=== PATIENT | male | born 1940 | race Hispanic/Latino ===

== ENCOUNTER → 2018-03-31 | Outpatient (CLI) | payer OTHER, MEDICARE ==
[~2018-03-31] MED LIST: ASPI-555 PO; ATOR40TA71 PO; CARV25TA PO; LISI10TA7 PO; OMEP20CA10 PO; POTA10TA19 PO; TAMS0.4C32 PO; WARF-57 PO
== END | disposition home or self-care (01) ==
LOC: OIH 13:29
PROVIDERS: ATTEND Family Medicine
DX: M48.061 Spinal stenosis, lumbar region without neurogenic claudication (principal); M47.896 Other spondylosis, lumbar region
CPT/HCPCS: 72100

== ENCOUNTER 2018-04-02 12:36 | Emergency (ER) | payer OTHER, MEDICARE ==
[2018-04-02] MEDS ORDERED: KETOROLAC TROMETHAMINE 60 MG/2 ML VIAL ONE (13:23)
[2018-04-02] MEDS ORDERED: MORPHINE SULFATE 2 MG/ML 1ML SYG ONE (13:24)
== END 2018-04-02 13:52 | disposition home or self-care (01) ==
LOC: EDH 12:36
DX: M54.41 Lumbago with sciatica, right side (principal); E78.5 Hyperlipidemia, unspecified; I10 Essential (primary) hypertension; Z72.0 Tobacco use; Z88.1 Allergy status to other antibiotic agents
CPT/HCPCS: 96372 ×2; 99284; J1885

== ENCOUNTER 2018-04-04 10:57 | Observation (INO) | payer OTHER, MEDICARE ==
[~2018-04-04] VITALS: Ht 160 cm; Wt 76.2 kg
[2018-04-04] MEDS: METRONIDAZOLE 500MG/100ML BAG 100 ML IVPB SCH ×2 (03:08→15:00)
[2018-04-04 11:26] LABS: BASOPHILS % (AUTO) 0.2 % (0.0-5.0); EOSINOPHILS % (AUTO) 0.2 % (0.0-8.0); HEMATOCRIT 50.8 % (42-54); LYMPHOCYTES % (AUTO) 7.4 % (21.0-51.0); MEAN CORPUSCULAR HEMOGLOBIN 28.2 pg (27.0-33.0); MEAN CORPUSCULAR HGB CONC 32.3 g/dL (32.0-36.0); MEAN CORPUSCULAR VOLUME 87.3 fL (79-99); NEUTROPHILS % (AUTO) 85.2 % (40.0-77.0); NUCLEATED RED BLOOD CELLS 0.1 % (0.0-0.19); PLATELET COUNT (AUTO) 126 K/uL (130-400); RED BLOOD CELL COUNT(AUTO) 5.81 MIL/uL (4.50-6.20); RED CELL DISTRIBUTION WIDTH 13.8 % (11.0-15.5); WHITE BLOOD COUNT (AUTO) 2.8 K/uL (4.8-10.8)
[2018-04-04 11:37] LABS: CREATININE 1.2 mg/dL (0.5-1.5)
[2018-04-04 11:47] LABS: ALBUMIN 3.3 g/dL (3.5-5.0); BILIRUBIN,TOTAL 0.7 mg/dL (0.2-1.0); TOTAL PROTEIN, SERUM 6.5 g/dL (6.0-8.3)
[2018-04-04 12:00] LABS: PARTIAL THROMBOPLASTIN TIME 62.7 SEC (26.3-35.5)
[2018-04-04 12:05] LABS: BAND NEUTROPHILS % (MANUAL) 13 % (0-2); LYMPHOCYTES % (MANUAL) 12 % (22-44); MONOCYTES % (MANUAL) 10 % (2-9); REACTIVE LYMPHOCYTES 1 % (0-0); SEGMENTED NEUTROPHILS % 64 % (40-70)
[2018-04-04 12:07] LABS: MAN.DIFF COMMENT-IMPRESSION MANUAL DIFFERENTIAL
[2018-04-04 12:14] LABS: PROTHROMBIN TIME > 63.0 SEC (9.6-11.6)
[2018-04-04 12:15] LABS: INR > 7.00 (0.85-1.15)
[2018-04-04] MEDS ORDERED: PHYTONADIONE 10 MG/1 ML AMP ONE (14:05)
[2018-04-04] MEDS: NS-20 MEQ KCL 1000ML 1,000 ML IV SCH (14:45)
[2018-04-04] MEDS: PANTOPRAZOLE 40 MG/VIAL IVP SCH (14:45)
[2018-04-04] MEDS ORDERED: NS-20 MEQ KCL 1000ML 1,000 ML IV ONE (14:59)
[2018-04-04] MEDS ORDERED: METRONIDAZOLE 500MG/100ML BAG 100 ML ONE ×2 (14:59→23:02)
[2018-04-04] MEDS ORDERED: ACETAMINOPHEN 325 MG TAB PO PRN ×2 (15:00)
[2018-04-04] MEDS ORDERED: GUAIFENESIN-DM 200/20 MG 10 ML PO PRN (15:00)
[2018-04-04] MEDS ORDERED: POTASSIUM CHLORIDE 10% ELIXIR 20 MEQ/15 ML UDCUP PO PRN (15:00)
[2018-04-04] MEDS ORDERED: ZOLPIDEM TARTRATE 5 MG TAB PO PRN (15:00)
[2018-04-04] MEDS ORDERED: POTASSIUM CHLORIDE 20 MEQ ERTAB PO PRN (15:00)
[2018-04-04] MEDS ORDERED: LACTULOSE 20 GM/30 ML UDCUP PO PRN (15:00)
[2018-04-04] MEDS ORDERED: POTASSIUM CHLORIDE 20MEQ/100ML 100 ML IV PRN (15:00)
[2018-04-04] MEDS ORDERED: NITROGLYCERIN 0.4 MG SL TAB SL PRN (15:00)
[2018-04-04] MEDS ORDERED: GLUCAGON 1MG KIT 1 MG ML IM PRN (15:00)
[2018-04-04] MEDS ORDERED: DIPHENHYDRAMINE HCL 25 MG CAPSULE PO PRN (15:00)
[2018-04-04] MEDS ORDERED: DiphenhydrAMINE HCL 50 MG/ML VIAL IVP PRN (15:00)
[2018-04-04] MEDS ORDERED: CLONIDINE HCL 0.1 MG TABLET PO PRN (15:00)
[2018-04-04] MEDS ORDERED: ONDANSETRON HCL 4 MG/2 ML VIAL IVP PRN (15:00)
[2018-04-04] MEDS ORDERED: LIDOCAINE HCL-MPF 1% 2ML VIAL IJ PRN (15:00)
[2018-04-04] MEDS ORDERED: MAG HYDROX/AL HYDROX/SIMETH ES 30 ML SUSP UDCUP PO PRN (15:00)
[2018-04-04] MEDS ORDERED: DEXTROSE 50%-WATER 50 ML DISP.SYRIN IV PRN (15:00)
[2018-04-04 15:24] LABS: HEMATOCRIT 49.4 % (42-54)
[2018-04-04 15:36] LABS: APPEARANCE,URINE Clear (CLEAR); BILIRUBIN,URINE Small (NEGATIVE); COLOR,URINE Dark Yellow (YELLOW); GLUCOSE, URINE (UA) Negative (NEGATIVE); KETONES,URINE Trace mg/dL (NEGATIVE); LEUKOCYTE ESTERASE ,URINE Trace (NEGATIVE); NITRATE,URINE Negative (NEGATIVE); OCCULT BLOOD,URINE Negative (NEGATIVE); PH,URINE 5.5 (5.0-8.0); PROTEIN,URINE POS 1+ (NEGATIVE)
[2018-04-04 15:44] LABS: BACTERIA,URINE Rare /HPF (None Seen); RBC,URINE None Seen /HPF (0-1); WBC,URINE 0-1 /HPF (0-1)
[2018-04-04 15:45] LABS: HYALINE CASTS, URINE 0-1 /LPF (0-1 /LPF); MUCUS,URINE Few LPF (None Seen); SQUAMOUS EPITHELIAL CELL,UR None Seen /HPF (0-2)
[2018-04-04] MEDS: INSULIN R PO SSI SQ SCH ×2 (16:30→21:00)
[2018-04-04 19:09] LABS: HEMATOCRIT 48.2 % (42-54)
[2018-04-04] MEDS ORDERED: ACETAMINOPHEN 325 MG TAB ONE (20:43)
[2018-04-05 00:36] VITALS: BP 148/88
[2018-04-05] MEDS ORDERED: WARF-57 PO (02:00)
[2018-04-05] MEDS ORDERED: TAMS0.4C32 PO (02:00)
[2018-04-05] MEDS ORDERED: ASPI-555 PO (02:00)
[2018-04-05] MEDS ORDERED: LISI10TA7 PO (02:00)
[2018-04-05] MEDS ORDERED: CARV25TA PO (02:00)
[2018-04-05] MEDS ORDERED: ATOR40TA71 PO (02:00)
[2018-04-05] MEDS ORDERED: OMEP20CA10 PO (02:00)
[2018-04-05] MEDS ORDERED: POTA10TA19 PO (02:00)
[2018-04-05 03:00] VITALS: BP 112/68
[2018-04-05] MEDS: NS-20 MEQ KCL 1000ML 1,000 ML IV SCH ×2 (03:15→15:33)
[2018-04-05 06:00] LABS: BASOPHILS % (AUTO) 0.3 % (0.0-5.0); EOSINOPHILS % (AUTO) 0.1 % (0.0-8.0); HEMATOCRIT 46.3 % (42-54); LYMPHOCYTES % (AUTO) 11.7 % (21.0-51.0); MEAN CORPUSCULAR HEMOGLOBIN 29.1 pg (27.0-33.0); MEAN CORPUSCULAR HGB CONC 33.7 g/dL (32.0-36.0); MEAN CORPUSCULAR VOLUME 86.3 fL (79-99); MONOCYTES % (AUTO) 6.6 % (3.0-13.0); NEUTROPHILS % (AUTO) 81.3 % (40.0-77.0); NUCLEATED RED BLOOD CELLS 0.1 % (0.0-0.19); PLATELET COUNT (AUTO) 128 K/uL (130-400); RED BLOOD CELL COUNT(AUTO) 5.36 MIL/uL (4.50-6.20); RED CELL DISTRIBUTION WIDTH 14.1 % (11.0-15.5); WHITE BLOOD COUNT (AUTO) 4.7 K/uL (4.8-10.8)
[2018-04-05 06:15] LABS: ALBUMIN 2.4 g/dL (3.5-5.0); BILIRUBIN,TOTAL 0.6 mg/dL (0.2-1.0); POTASSIUM 3.7 mmol/L (3.5-5.1); TOTAL PROTEIN, SERUM 5.3 g/dL (6.0-8.3)
[2018-04-05] MEDS: METRONIDAZOLE 500MG/100ML BAG 100 ML IVPB SCH ×3 (06:45→22:57)
[2018-04-05] MEDS: INSULIN R PO SSI SQ SCH ×4 (06:46→21:00)
[2018-04-05 07:00] VITALS: BP 103/54
[2018-04-05] MEDS: PANTOPRAZOLE 40 MG/VIAL IVP SCH (09:12)
[2018-04-05 10:09] LABS: HEMATOCRIT 47.9 % (42-54)
[2018-04-05] MEDS ORDERED: MORPHINE SULFATE 2 MG/ML 1ML SYG IV PRN (10:30)
[2018-04-05 11:00] VITALS: BP 143/67
[2018-04-05] MEDS: METHYLPREDNISOLONE SOD SUCC 125MG/2ML VIAL IVP SCH ×3 (11:57→22:57)
[2018-04-05 14:32] LABS: HEMATOCRIT 47.9 % (42-54)
[2018-04-05 16:00] VITALS: BP 124/77
[2018-04-05 20:00] VITALS: BP 124/68
[2018-04-06] VITALS: BP 136/75
[2018-04-06 04:00] VITALS: BP 126/92
[2018-04-06] MEDS: NS-20 MEQ KCL 1000ML 1,000 ML IV SCH (04:35)
[2018-04-06] MEDS: METHYLPREDNISOLONE SOD SUCC 125MG/2ML VIAL IVP SCH ×2 (04:37→10:41)
[2018-04-06 05:16] LABS: BASOPHILS % (AUTO) 0.1 % (0.0-5.0); HEMATOCRIT 47.9 % (42-54); MEAN CORPUSCULAR HEMOGLOBIN 28.2 pg (27.0-33.0); MEAN CORPUSCULAR HGB CONC 32.5 g/dL (32.0-36.0); MEAN CORPUSCULAR VOLUME 86.7 fL (79-99); MONOCYTES % (AUTO) 1.8 % (3.0-13.0); NEUTROPHILS % (AUTO) 89.1 % (40.0-77.0); PLATELET COUNT (AUTO) 121 K/uL (130-400); RED BLOOD CELL COUNT(AUTO) 5.53 MIL/uL (4.50-6.20); RED CELL DISTRIBUTION WIDTH 14.2 % (11.0-15.5); WHITE BLOOD COUNT (AUTO) 8.7 K/uL (4.8-10.8)
[2018-04-06 05:25] LABS: INR 1.53 (0.85-1.15); PROTHROMBIN TIME 15.9 SEC (9.6-11.6)
[2018-04-06 05:30] LABS: ALBUMIN 2.5 g/dL (3.5-5.0); BILIRUBIN,TOTAL 0.6 mg/dL (0.2-1.0); POTASSIUM 3.7 mmol/L (3.5-5.1); TOTAL PROTEIN, SERUM 5.7 g/dL (6.0-8.3)
[2018-04-06] MEDS: METRONIDAZOLE 500MG/100ML BAG 100 ML IVPB SCH (06:12)
[2018-04-06] MEDS: INSULIN R PO SSI SQ SCH ×2 (06:12→12:42)
[2018-04-06 07:00] VITALS: BP 143/77
[2018-04-06] MEDS: PANTOPRAZOLE 40 MG/VIAL IVP SCH (10:21)
[2018-04-06 11:00] VITALS: BP 150/74
[2018-04-06] MEDS ORDERED: CARVEDILOL 25 MG TABLET PO SCH (17:00)
[2018-04-06] MEDS ORDERED: ATORVASTATIN CALCIUM 40 MG TABLET PO SCH (17:00)
[2018-04-06] MEDS ORDERED: POTASSIUM CITRATE 20 MEQ PO SCH (21:00)
[2018-04-07] MEDS ORDERED: LISINOPRIL 10 MG TABLET PO SCH (09:00)
[2018-04-07] MEDS ORDERED: ASPIRIN 81MG TAB.CHEW PO SCH (09:00)
[2018-04-07] MEDS ORDERED: TAMSULOSIN HCL 0.4 MG CAP.ER.24H PO SCH (09:00)
[2018-04-07] MEDS ORDERED: PANTOPRAZOLE SODIUM 40 MG TABLET.DR PO SCH (09:00)
== END 2018-04-06 17:15 | disposition home or self-care (01) ==
LOC: EDH 10:57 → EDHIP 14:20 → 3BH 23:58
PROVIDERS: ADMIT Family Medicine; ATTEND Family Medicine
DX: A04.72 Enterocolitis due to Clostridium difficile, not specified as recurrent (principal); E78.5 Hyperlipidemia, unspecified; I10 Essential (primary) hypertension; M54.9 Dorsalgia, unspecified; Z79.01 Long term (current) use of anticoagulants
CPT/HCPCS: 36415 ×3; 72131; 80053 ×3; 81001; 82270; 82948 ×5; 83690; 84484; 85014 ×5; 85018 ×5; 85025 ×3; 85610 ×2; 85730; 86850; 86900; 86901; 87046; 87205; 87324; 93005; 96365; 96366 ×2; 96372; 96375; 96376 ×2; 97116; 97161; 99285; C9113 ×3; G0378 ×51; G8978; G8979; G8980; G8981; G8982; G8983; J1815; J2930 ×5; J3430; J3480 ×4; J3490 ×6

== ENCOUNTER → 2018-05-12 | Outpatient (CLI) | payer OTHER, MEDICARE | END | disposition home or self-care (01) | LOC: OIH 13:09 | PROVIDERS: ATTEND Family Medicine | DX: M16.11 Unilateral primary osteoarthritis, right hip (principal); M47.896 Other spondylosis, lumbar region; M25.78 Osteophyte, vertebrae | CPT/HCPCS: 72100; 73502 ==

== ENCOUNTER 2018-09-19 05:44 | Day surgery (SDC) | payer OTHER, MEDICARE ==
[2018-09-18 10:41] VITALS: BP 140/71
[2018-09-18 10:44] LABS: BASOPHILS % (AUTO) 0.4 % (0.0-5.0); EOSINOPHILS % (AUTO) 5.1 % (0.0-8.0); LYMPHOCYTES % (AUTO) 27.6 % (21.0-51.0); MEAN CORPUSCULAR HEMOGLOBIN 28.1 pg (27.0-33.0); MEAN CORPUSCULAR HGB CONC 32.9 g/dL (32.0-36.0); MEAN CORPUSCULAR VOLUME 85.3 fL (79-99); MONOCYTES % (AUTO) 10.7 % (3.0-13.0); NEUTROPHILS % (AUTO) 56.2 % (40.0-77.0); NUCLEATED RED BLOOD CELLS 0.1 % (0.0-0.19); PLATELET COUNT (AUTO) 117 K/uL (130-400); RED BLOOD CELL COUNT(AUTO) 5.51 MIL/uL (4.50-6.20); RED CELL DISTRIBUTION WIDTH 14.5 % (11.0-15.5); WHITE BLOOD COUNT (AUTO) 4.3 K/uL (4.8-10.8)
[2018-09-18 10:56] LABS: INR 1.38 (0.85-1.15); PARTIAL THROMBOPLASTIN TIME 33.5 SEC (26.3-35.5); PROTHROMBIN TIME 14.4 SEC (9.6-11.6)
[2018-09-18 10:59] LABS: CREATININE 0.9 mg/dL (0.5-1.5); POTASSIUM 4.4 mmol/L (3.5-5.1)
--- NOTE | 2018-09-18 11:10 | NUR ---
ABNORMAL LABS NOTIFIED ROLY DO OF PT'S PT 14.4, INR 1.38, PLT 117. NO FURTHER ORDERS GIVEN.
[~2018-09-19] VITALS: Ht 165.1 cm; Wt 75.0 kg
[2018-09-19] VITALS (10 sets, daily range): BP systolic 105–136; BP diastolic 58–76
[~2018-09-19 05:44] MED LIST changes: +CALC-866 PO; -POTA10TA19 PO; +[UNRECOGNIZED DRUG - OTHER] PO
[2018-09-19] MEDS ORDERED: SODIUM CHLORIDE 0.9% 1000ML 1,000 ML IV SCH (06:00)
[2018-09-19] MEDS ORDERED: LISI-617 PO (07:13)
[2018-09-19] MEDS ORDERED: LIDOCAINE HCL 1% MDV 50ML VIAL ONE (07:15)
[2018-09-19] MEDS ORDERED: BUPIVACAINE/PF 0.25% 30ML VIAL IJ ONE (07:15)
[2018-09-19] MEDS ORDERED: CEFAZOLIN SODIUM 1 GM VIAL ONE (07:15)
--- NOTE | 2018-09-19 07:15 | NUR ---
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 family at bedside.
[2018-09-19] MEDS ORDERED: MEPERIDINE-PF 25 MG/ML SYG ONE ×2 (07:41→07:48)
[2018-09-19] MEDS ORDERED: MIDAZOLAM HCL 1 MG/ML 2ML VIAL ONE ×2 (07:41→07:48)
[2018-09-19] MEDS ORDERED: ACETAMINOPHEN 325 MG TAB PO PRN ×2 (08:45)
[2018-09-19] MEDS ORDERED: ONDANSETRON HCL 4 MG/2 ML VIAL IV PRN (08:45)
[2018-09-19] MEDS ORDERED: ACETAMINOPHEN-CODEINE 300/30MG TAB PO PRN ×2 (08:45)
--- NOTE | 2018-09-19 09:10 | NUR ---
procedure pt return from collaborative teacher. s/p Biv aicd to right upper chest area changeout. pressure dressing dry and intact, ice packs applied as soon as pt arrived to floor. pt awake and alert, vs stable on arrival. family at bedside. Dr. corina Oshea spoke to them. pt /family instructed to keep bedrest for 4 hours. to call nurse for any assistance needed. Plan of care discuss with pt/family they verbalized understanding.
[2018-09-19] MEDS ORDERED: CEFAZOLIN SODIUM 1 GM VIAL IVP SCH (13:30)
--- NOTE | 2018-09-19 13:40 | NUR ---
dc dc instructions given to pt's spouse with rx, instructed on new med regimen and possible side effects . to f/u with Dr. Mayers . to resume Coumadin on 09-21-18. to keep opsite dressing dry and intact and not to remove until seen by dr. corina mayers. right chest dressing dry and intact. also instructed not to elevate right arm above shoulder for 6 weeks. . pt spouse verbalized understanding. pt getting dress with spouse assistance will go home once ready. piv removed to right hand site asymptomatic
--- NOTE | 2018-09-19 13:50 | NUR ---
dc pt dc home via wc, no distress noted. accompanied by spouse
== END 2018-09-19 13:50 | disposition home or self-care (01) ==
LOC: DAH 05:44
PROVIDERS: ATTEND Internal Medicine Cardiovascular Disease
DX: Z45.2 Encounter for adjustment and management of vascular access device (principal); I25.10 Atherosclerotic heart disease of native coronary artery without angina pectoris; I25.5 Ischemic cardiomyopathy; I21.3 ST elevation (STEMI) myocardial infarction of unspecified site; I48.0 Paroxysmal atrial fibrillation; Z79.01 Long term (current) use of anticoagulants; Z98.890 Other specified postprocedural states; Z95.0 Presence of cardiac pacemaker; Z88.8 Allergy status to other drugs, medicaments and biological substances; Z79.899 Other long term (current) drug therapy; I50.42 Chronic combined systolic (congestive) and diastolic (congestive) heart failure
CPT/HCPCS: 33264; 36415; 80048; 85025; 85610; 85730; 93005; A4218; A4606; C1882; J0690 ×2; J2175 ×2; J2250 ×2; J3490 ×2; J7030; 99156; 99157

== ENCOUNTER → 2018-11-21 | Outpatient (CLI) | payer OTHER, MEDICARE ==
[~2018-11-21] MED LIST changes: +LISI-617 PO; -LISI10TA7 PO
== END | disposition home or self-care (01) ==
LOC: OIH 09:59
PROVIDERS: ATTEND Family Medicine
DX: M19.042 Primary osteoarthritis, left hand (principal)
CPT/HCPCS: 73130

== ENCOUNTER 2019-03-04 14:19 | Observation (INO) | payer OTHER, MEDICARE ==
[~2019-03-04] VITALS: Ht 165.1 cm; Wt 72.7 kg
[~2019-03-04 14:19] MED LIST changes: +OMEP-50 PO; -OMEP20CA10 PO
[2019-03-04 14:39] LABS: BASOPHILS % (AUTO) 0.3 % (0.0-5.0); EOSINOPHILS % (AUTO) 0.6 % (0.0-8.0); HEMATOCRIT 48.4 % (42-54); LYMPHOCYTES % (AUTO) 5.4 % (21.0-51.0); MEAN CORPUSCULAR HEMOGLOBIN 29.5 pg (27.0-33.0); MEAN CORPUSCULAR HGB CONC 33.5 g/dL (32.0-36.0); MEAN CORPUSCULAR VOLUME 88.2 fL (79-99); MONOCYTES % (AUTO) 4.8 % (3.0-13.0); NEUTROPHILS % (AUTO) 88.9 % (40.0-77.0); PLATELET COUNT (AUTO) 124 K/uL (130-400); RED BLOOD CELL COUNT(AUTO) 5.48 MIL/uL (4.50-6.20); RED CELL DISTRIBUTION WIDTH 13.9 % (11.0-15.5); WHITE BLOOD COUNT (AUTO) 6.8 K/uL (4.8-10.8)
[2019-03-04 14:46] LABS: CREATININE 1.1 mg/dL (0.5-1.5); POTASSIUM 3.6 mmol/L (3.5-5.1)
[2019-03-04 14:50] LABS: ALBUMIN 3.5 g/dL (3.5-5.0); BILIRUBIN,TOTAL 1.4 mg/dL (0.2-1.0); TOTAL PROTEIN, SERUM 6.5 g/dL (6.0-8.3)
[2019-03-04 14:53] LABS: INR 1.23 (0.85-1.15); PARTIAL THROMBOPLASTIN TIME 29.4 SEC (26.3-35.5); PROTHROMBIN TIME 12.9 SEC (9.6-11.6)
[2019-03-04 15:00] LABS: CREATINE KINASE, TOTAL 131 U/L (21-232); MYOGLOBIN 125 ng/mL (10-92); TROPONIN I < 0.04 ng/mL (0.00-0.06)
[2019-03-04] MEDS ORDERED: NITROGLYCERIN 50 MG/D5% WATER 1 BOT ONE (15:22)
[2019-03-04] MEDS ORDERED: POTASSIUM CHLORIDE 20MEQ/100ML 100 ML IV PRN (17:00)
[2019-03-04] MEDS ORDERED: NITROGLYCERIN 50 MG/D5% WATER 250 BOT IV PRN (17:00)
[2019-03-04] MEDS ORDERED: POTASSIUM CHLORIDE 10% ELIXIR 20 MEQ/15 ML UDCUP PO PRN (17:00)
[2019-03-04] MEDS ORDERED: ACETAMINOPHEN 325 MG TAB PO PRN (17:00)
[2019-03-04] MEDS ORDERED: LIDOCAINE HCL-MPF 1% 2ML VIAL IJ PRN (17:00)
[2019-03-04] MEDS ORDERED: ASPIRIN 325 MG TABLET PO SCH (18:00)
[2019-03-04 21:38] VITALS: BP 107/62
[2019-03-04 21:47] LABS: CREATINE KINASE, TOTAL 118 U/L (21-232); MYOGLOBIN 86 ng/mL (10-92); TROPONIN I < 0.04 ng/mL (0.00-0.06)
[2019-03-05] VITALS (13 sets, daily range): BP systolic 94–159; BP diastolic 55–90
[2019-03-05] MEDS: POTASSIUM CHLORIDE 20 MEQ ERTAB PO PRN ×2 (00:08→01:23)
--- NOTE | 2019-03-05 01:24 | NUR ---
NEW ADMIT Admitted a 78 yr old male from ER for unstable angina with an ongoing NTG drip infusing at 5 mcg per minute. Alert and oriented x 3, administered O2 at 2l per nasal cannula for O2 sat of 93%. Bedrest status for now, with orders fr Dr. Osorio to keep the pt npo post mn , for possible heart cath in the am by Dr. Bellamy as per Dr. Osorio. Corina Villagran CLINICAL EDUCATOR called at [id number] and was made aware about the pt's admission to the floor as per order. K+=3.6, pt covered with 40meq of kdur as per protocol. Running a paced rhythm in the 70's. No complaints of any other discomfort, at the bedside.
[2019-03-05] MEDS ORDERED: NAPR-1023 PO (02:45)
[2019-03-05] MEDS ORDERED: LISI10TA7 PO (02:45)
[2019-03-05] MEDS ORDERED: WARF-57 PO (02:45)
[2019-03-05] MEDS ORDERED: PRED20TA3 PO (02:45)
[2019-03-05 04:26] LABS: APPEARANCE,URINE Clear (CLEAR); BILIRUBIN,URINE Small (NEGATIVE); COLOR,URINE Dark Yellow (YELLOW); GLUCOSE, URINE (UA) Negative (NEGATIVE); KETONES,URINE Trace mg/dL (NEGATIVE); LEUKOCYTE ESTERASE ,URINE Negative (NEGATIVE); NITRATE,URINE Negative (NEGATIVE); OCCULT BLOOD,URINE Negative (NEGATIVE); PROTEIN,URINE Trace mg/dL (NEGATIVE)
[2019-03-05 04:47] LABS: BACTERIA,URINE None Seen /HPF (None Seen); RBC,URINE None Seen /HPF (0-1); SQUAMOUS EPITHELIAL CELL,UR Rare /HPF (0-2); WBC,URINE None Seen /HPF (0-1)
[2019-03-05 04:48] LABS: MUCUS,URINE Few LPF (None Seen)
[2019-03-05 04:59] LABS: CREATINE KINASE, TOTAL 100 U/L (21-232); MYOGLOBIN 74 ng/mL (10-92); TROPONIN I < 0.04 ng/mL (0.00-0.06)
--- NOTE | 2019-03-05 06:50 | NUR ---
PATIENT UPDATE Slept well overnight, no chest pain, comfortable with the Tridil drip at 5 mcg per minute. Pending to be seen by Dr. Bellamy this am, for possible heart cath this am. Kept NPO post mn.
[2019-03-05] MEDS ORDERED: SODIUM CHLORIDE 0.9% 500ML 500 ML IV SCH (08:40)
[2019-03-05] MEDS: ASPIRIN 81 MG EC TAB PO SCH (09:00)
[2019-03-05] MEDS: LISINOPRIL 10 MG TABLET PO SCH (09:00)
[2019-03-05] MEDS: TAMSULOSIN HCL 0.4 MG CAP.ER.24H PO SCH (09:00)
[2019-03-05] MEDS: CARVEDILOL 25 MG TABLET PO SCH (09:00)
[2019-03-05] MEDS ORDERED: NITROGLYCERIN 5 MG/ML 10 ML VIAL IV ONE (10:39)
[2019-03-05] MEDS ORDERED: LIDOCAINE HCL 2% 20ML ONE (10:39)
[2019-03-05] MEDS ORDERED: IOHEXOL-350 50ML VIAL IV ONE (10:39)
[2019-03-05] MEDS ORDERED: IOHEXOL 350 MG/ML 100ML INFUS..BTL IV ONE ×2 (10:41→11:19)
[2019-03-05] MEDS ORDERED: MIDAZOLAM HCL 1 MG/ML 2ML VIAL ONE (11:14)
[2019-03-05] MEDS ORDERED: FENTANYL CITRATE PF 50 MCG/1 ML 2ML VIAL ONE (11:14)
[2019-03-05] MEDS ORDERED: METHYLPREDNISOLONE SOD SUCC 125MG/2ML VIAL ONE (13:10)
[2019-03-05] MEDS ORDERED: FAMOTIDINE/PF 20 MG/2 ML VIAL IV ONE (13:10)
[2019-03-05] MEDS ORDERED: DiphenhydrAMINE HCL 50 MG/ML VIAL ONE (13:11)
[2019-03-05] MEDS: FUROSEMIDE 10 MG/ML 2ML VIAL IV SCH ×2 (14:51→21:34)
[2019-03-05] MEDS ORDERED: ATORVASTATIN CALCIUM 40 MG TABLET PO SCH (21:00)
[2019-03-06] MEDS: CARVEDILOL 25 MG TABLET PO SCH ×2 (01:02→09:45)
[2019-03-06 04:00] VITALS: BP 108/57
[2019-03-06 05:28] LABS: HEMATOCRIT 48.7 % (42-54); MEAN CORPUSCULAR HEMOGLOBIN 29.6 pg (27.0-33.0); MEAN CORPUSCULAR HGB CONC 33.5 g/dL (32.0-36.0); MEAN CORPUSCULAR VOLUME 88.4 fL (79-99); PLATELET COUNT (AUTO) 116 K/uL (130-400); RED BLOOD CELL COUNT(AUTO) 5.51 MIL/uL (4.50-6.20); RED CELL DISTRIBUTION WIDTH 13.9 % (11.0-15.5); WHITE BLOOD COUNT (AUTO) 6.9 K/uL (4.8-10.8)
[2019-03-06 05:43] LABS: CREATININE 1.1 mg/dL (0.5-1.5); POTASSIUM 3.8 mmol/L (3.5-5.1)
[2019-03-06 07:44] VITALS: BP 95/60
--- NOTE | 2019-03-06 07:50 | NUR ---
ASSESSMENT ENCOUNTERED PT A&OX3, CALM COOPERATIVE AND DOES NOT APPEAR TO BE IN ANY DISTRESS NOR ANY NEURO DEFICITS PRESENT. PT DENIES NAUSEA, SOB OR DIZZINESS BUT DOES C/O HEADACHE. PT IS AMBULATORY, GAIT STEADY AND STRONG WITH STAND BY ASSIST. RT GROIN SOFT NONTENDER WITH NO OOZING OR HEMATOMA PRESENT. DP/PT PULSES PALPABLE. CALL LIGHT WITHIN REACH, FAMILY AT BEDSIDE.
[2019-03-06] MEDS ORDERED: PANTOPRAZOLE SODIUM 40 MG TABLET.DR PO SCH (09:00)
[2019-03-06] MEDS: LISINOPRIL 10 MG TABLET PO SCH (09:44)
[2019-03-06] MEDS: TAMSULOSIN HCL 0.4 MG CAP.ER.24H PO SCH (09:44)
[2019-03-06] MEDS: ASPIRIN 81 MG EC TAB PO SCH (09:44)
[2019-03-06 09:49] VITALS: BP 116/66
--- NOTE | 2019-03-06 11:30 | NUR ---
HEADACHE NOT IMPROVED, PT'S STATES THAT SHE WILL NOT TAKE HIM HOME WITH CONTINUED HEADACHE. DESHAWN CHAMORRO UPDATED ORDERS RECEIVED FOR CT HEAD NO CONTRAST AND IF NO FINDINGS, OK TO DISCHARGE. INFORMED PATIENT AND PATIENT AGREED.
--- NOTE | 2019-03-06 14:00 | NUR ---
DISCHARGE INSTRUCTIONS GIVEN REGARDING NO FINDINGS IN CT SCAN AND IF SYMPTOMS WORSEN TO RETURN TO ER OR [facility] ER FOR WORSENING NEURO SYMPTOMS, APPOINTMENT FOLLOW UP GIVEN FOR DR Bonnie CULP AND DR ROUSE, PIV REMOVED AND INTACT, DISCHARGED HOME TO FAMILY VEHICLE VIA WHEELCHAIR.
== END 2019-03-06 13:57 | disposition home or self-care (01) ==
LOC: EDH 14:19 → EDHIP 16:25 → 4CH 21:38
PROVIDERS: ADMIT Internal Medicine; ATTEND Internal Medicine
DX: I25.810 Atherosclerosis of coronary artery bypass graft(s) without angina pectoris (principal); I25.110 Atherosclerotic heart disease of native coronary artery with unstable angina pectoris; D69.6 Thrombocytopenia, unspecified; E78.5 Hyperlipidemia, unspecified; I11.0 Hypertensive heart disease with heart failure; I50.43 Acute on chronic combined systolic (congestive) and diastolic (congestive) heart failure; I24.9 Acute ischemic heart disease, unspecified; I25.5 Ischemic cardiomyopathy; M19.041 Primary osteoarthritis, right hand; M19.042 Primary osteoarthritis, left hand; Z82.49 Family history of ischemic heart disease and other diseases of the circulatory system; Z79.01 Long term (current) use of anticoagulants; Z79.82 Long term (current) use of aspirin; Z79.899 Other long term (current) drug therapy; Z88.2 Allergy status to sulfonamides
CPT/HCPCS: 36415 ×3; 70450; 71045; 80048; 80053; 81001; 82550 ×3; 83874 ×3; 83880; 84484 ×3; 85025; 85027; 85610; 85730; 93005 ×3; 93459; 96374; 96376; 99291; C1760; C1769; C1894 ×2; G0378 ×46; J1200; J1644; J1940 ×2; J2250; J2930; J3010; J3490 ×4; Q9965 ×2; Q9967 ×3; 99156; 99157

== ENCOUNTER → 2019-10-10 | Outpatient (CLI) | payer OTHER, MEDICARE ==
[~2019-10-10] MED LIST changes: +LISI10TA7 PO; +NAPR-1023 PO; -OMEP-50 PO; +OMEP20CA12 PO; +PRED20TA3 PO
== END | disposition home or self-care (01) ==
LOC: OIH 10:38
PROVIDERS: ATTEND Family Medicine
DX: M19.041 Primary osteoarthritis, right hand (principal); M19.042 Primary osteoarthritis, left hand; M25.842 Other specified joint disorders, left hand; M25.841 Other specified joint disorders, right hand
CPT/HCPCS: 73130

== ENCOUNTER 2019-11-21 20:05 | Emergency (ER) | payer OTHER, MEDICARE ==
[~2019-11-21 20:05] MED LIST changes: -ASPI-555 PO; +ASPI-556 PO
[2019-11-21 20:38] LABS: BASOPHILS % (AUTO) 0.2 % (0.0-5.0); EOSINOPHILS % (AUTO) 1.6 % (0.0-8.0); HEMATOCRIT 49.3 % (42-54); MEAN CORPUSCULAR HEMOGLOBIN 29.1 pg (27.0-33.0); MEAN CORPUSCULAR HGB CONC 33.1 g/dL (32.0-36.0); MEAN CORPUSCULAR VOLUME 87.9 fL (79-99); MONOCYTES % (AUTO) 10.3 % (3.0-13.0); NEUTROPHILS % (AUTO) 57.7 % (40.0-77.0); PLATELET COUNT (AUTO) 143 K/uL (130-400); RED BLOOD CELL COUNT(AUTO) 5.61 MIL/uL (4.50-6.20); RED CELL DISTRIBUTION WIDTH 13.4 % (11.0-15.5); WHITE BLOOD COUNT (AUTO) 5.1 K/uL (4.8-10.8)
[2019-11-21 20:53] LABS: INR 1.18 (0.85-1.15); PARTIAL THROMBOPLASTIN TIME 31.4 SEC (26.3-35.5); POTASSIUM 3.8 mmol/L (3.5-5.1); PROTHROMBIN TIME 12.7 SEC (9.6-11.6)
[2019-11-21 20:57] LABS: ALBUMIN 4.2 g/dL (3.5-5.0); BILIRUBIN,TOTAL 0.8 mg/dL (0.2-1.0); TOTAL PROTEIN, SERUM 7.2 g/dL (6.0-8.3)
[2019-11-21 21:14] LABS: B-TYPE NATRIURETIC PEPTIDE 82 pg/mL (0-100)
[2019-11-21] MEDS ORDERED: ACETAMINOPHEN EXTRA STRENGTH 500 MG TABLET ONE (21:39)
== END 2019-11-21 22:04 | disposition home or self-care (01) ==
LOC: EDH 20:05
DX: I10 Essential (primary) hypertension (principal); R51 Headache; R42 Dizziness and giddiness; E78.5 Hyperlipidemia, unspecified; Z95.1 Presence of aortocoronary bypass graft; Z95.0 Presence of cardiac pacemaker; Z88.1 Allergy status to other antibiotic agents; Z86.73 Personal history of transient ischemic attack (TIA), and cerebral infarction without residual deficits
CPT/HCPCS: 36415; 70450; 71045; 80053; 82550; 83880; 84484; 85025; 85610; 85730; 93005

== ENCOUNTER → 2019-11-30 | Outpatient (CLI) | payer OTHER, MEDICARE ==
[~2019-11-30] MED LIST changes: +ASPI-555 PO; -ASPI-556 PO
== END | disposition home or self-care (01) ==
LOC: RAH 13:03
PROVIDERS: ATTEND Family Medicine
DX: R22.1 Localized swelling, mass and lump, neck (principal)
CPT/HCPCS: 76536

== ENCOUNTER → 2020-06-26 | Outpatient (CLI) | payer OTHER, MEDICARE ==
[~2020-06-26] MED LIST changes: -ASPI-555 PO; +ASPI-556 PO
== END | disposition home or self-care (01) ==
LOC: RAH 08:25
PROVIDERS: ATTEND Internal Medicine Cardiovascular Disease
DX: K76.89 Other specified diseases of liver (principal); N28.1 Cyst of kidney, acquired
CPT/HCPCS: 76700

== ENCOUNTER → 2020-09-11 | Outpatient (CLI) | payer OTHER, MEDICARE ==
[~2020-09-11] MED LIST changes: -LISI-617 PO; +LISI-809 PO; +LISI10TA24 PO; -LISI10TA7 PO
== END | disposition home or self-care (01) ==
LOC: SHCH 12:42
PROVIDERS: ATTEND Internal Medicine Cardiovascular Disease
DX: I51.7 Cardiomegaly (principal); R06.09 Other forms of dyspnea
CPT/HCPCS: 93306; 93356

== ENCOUNTER → 2021-12-07 | Outpatient (CLI) | payer OTHER, MEDICARE ==
[~2021-12-07] MED LIST changes: +APIX5TAB PO; +LINA145C PO; -LISI-809 PO; -LISI10TA24 PO; +LOSA25TA2 PO; +MAGN400T51 PO; -NAPR-1023 PO; -PRED20TA3 PO; -WARF-57 PO
[2021-12-07 12:19] LABS: EOSINOPHILS % (AUTO) 4.7 % (0.0-8.0); HEMATOCRIT 49.6 % (42-54); LYMPHOCYTES % (AUTO) 31.5 % (21.0-51.0); MEAN CORPUSCULAR HEMOGLOBIN 27.9 pg (27.0-33.0); MEAN CORPUSCULAR HGB CONC 32.3 g/dL (32.0-36.0); MEAN CORPUSCULAR VOLUME 86.4 fL (79-99); MONOCYTES % (AUTO) 12.2 % (3.0-13.0); NEUTROPHILS % (AUTO) 51.4 % (40.0-77.0); PLATELET COUNT (AUTO) 155 K/uL (130-400); RED BLOOD CELL COUNT(AUTO) 5.74 MIL/uL (4.50-6.20); RED CELL DISTRIBUTION WIDTH 13.2 % (11.0-15.5); WHITE BLOOD COUNT (AUTO) 5.2 K/uL (4.8-10.8)
[2021-12-07 12:30] LABS: CREATININE 0.9 mg/dL (0.5-1.5); MAGNESIUM 1.9 mg/dL (1.80-2.40); POTASSIUM 4.4 mmol/L (3.5-5.1)
[2021-12-07 12:38] LABS: B-TYPE NATRIURETIC PEPTIDE 104 pg/mL (0-100)
== END | disposition home or self-care (01) ==
LOC: LAB 10:50
PROVIDERS: ATTEND Internal Medicine Cardiovascular Disease
DX: I50.22 Chronic systolic (congestive) heart failure (principal); R06.09 Other forms of dyspnea
CPT/HCPCS: 36415; 80048; 83735; 83880; 85025

== ENCOUNTER 2022-01-06 08:34 | Emergency (ER) | payer OTHER, MEDICARE ==
[~2022-01-06] VITALS: Ht 165.1 cm; Wt 73.9 kg
[2022-01-06 08:59] LABS: BASOPHILS % (AUTO) 0.4 % (0.0-5.0); EOSINOPHILS % (AUTO) 5.1 % (0.0-8.0); LYMPHOCYTES % (AUTO) 30.1 % (21.0-51.0); MEAN CORPUSCULAR HEMOGLOBIN 28.3 pg (27.0-33.0); MEAN CORPUSCULAR HGB CONC 32.9 g/dL (32.0-36.0); MEAN CORPUSCULAR VOLUME 85.9 fL (79-99); MONOCYTES % (AUTO) 9.6 % (3.0-13.0); NEUTROPHILS % (AUTO) 54.6 % (40.0-77.0); PLATELET COUNT (AUTO) 157 K/uL (130-400); RED BLOOD CELL COUNT(AUTO) 5.59 MIL/uL (4.50-6.20); RED CELL DISTRIBUTION WIDTH 13.3 % (11.0-15.5); WHITE BLOOD COUNT (AUTO) 4.9 K/uL (4.8-10.8)
[2022-01-06 09:28] LABS: CREATININE 0.9 mg/dL (0.5-1.5); POTASSIUM 3.7 mmol/L (3.5-5.1)
[2022-01-06 09:33] LABS: ALBUMIN 3.9 g/dL (3.5-5.0); BILIRUBIN,TOTAL 1.2 mg/dL (0.2-1.0); TOTAL PROTEIN, SERUM 7.2 g/dL (6.0-8.3)
[2022-01-06 09:57] LABS: APPEARANCE,URINE CLEAR (CLEAR); BILIRUBIN,URINE NEGATIVE (NEGATIVE); COLOR,URINE YELLOW (YELLOW); GLUCOSE, URINE (UA) NEGATIVE (NEGATIVE); KETONES,URINE NEGATIVE (NEGATIVE); LEUKOCYTE ESTERASE ,URINE NEGATIVE (NEGATIVE); NITRATE,URINE NEGATIVE (NEGATIVE); OCCULT BLOOD,URINE NEGATIVE (NEGATIVE); PH,URINE 5.5 (5.0-8.0); PROTEIN,URINE NEGATIVE (NEGATIVE); UROBILINOGEN,URINE 0.2 mg/dL (0.2-1.0)
[2022-01-06 10:48] LABS: BACTERIA,URINE Rare /HPF (None Seen); RBC,URINE None Seen /HPF (0-1); SQUAMOUS EPITHELIAL CELL,UR None Seen /HPF (0-2); WBC,URINE None Seen /HPF (0-1)
[2022-01-06] MEDS ORDERED: 0.9%NACL 1000ML 500 ML IV ONE (11:30)
[2022-01-06 12:10] VITALS: BP 151/81
== END 2022-01-06 12:44 | disposition home or self-care (01) ==
LOC: EDH 08:34
DX: E86.0 Dehydration (principal); E78.00 Pure hypercholesterolemia, unspecified; I10 Essential (primary) hypertension; Z98.890 Other specified postprocedural states; Z79.82 Long term (current) use of aspirin; Z79.899 Other long term (current) drug therapy; Z88.2 Allergy status to sulfonamides; Z88.1 Allergy status to other antibiotic agents; Z88.8 Allergy status to other drugs, medicaments and biological substances
CPT/HCPCS: 36415; 70450; 71045; 80053; 81001; 84484; 85025; 93005; 96360; 99285; J7040

== ENCOUNTER 2022-02-11 08:14 | Inpatient (IN) | payer OTHER, MEDICARE ==
[2022-02-09 15:15] LABS: BASOPHILS % (AUTO) 0.4 % (0.0-5.0); HEMATOCRIT 47.4 % (42-54); MEAN CORPUSCULAR HEMOGLOBIN 28.5 pg (27.0-33.0); MEAN CORPUSCULAR HGB CONC 32.7 g/dL (32.0-36.0); MEAN CORPUSCULAR VOLUME 87.3 fL (79-99); MONOCYTES % (AUTO) 10.4 % (3.0-13.0); NEUTROPHILS % (AUTO) 49.8 % (40.0-77.0); PLATELET COUNT (AUTO) 180 K/uL (130-400); RED BLOOD CELL COUNT(AUTO) 5.43 MIL/uL (4.50-6.20); RED CELL DISTRIBUTION WIDTH 14.1 % (11.0-15.5); WHITE BLOOD COUNT (AUTO) 5.2 K/uL (4.8-10.8)
[2022-02-09 15:16] LABS: APPEARANCE,URINE Clear (CLEAR); BILIRUBIN,URINE Negative (NEGATIVE); COLOR,URINE Yellow (YELLOW); GLUCOSE, URINE (UA) Negative (NEGATIVE); KETONES,URINE Negative (NEGATIVE); LEUKOCYTE ESTERASE ,URINE Negative (NEGATIVE); NITRATE,URINE Negative (NEGATIVE); OCCULT BLOOD,URINE Negative (NEGATIVE); PROTEIN,URINE Negative (NEGATIVE)
[2022-02-09 15:26] LABS: CREATININE 0.9 mg/dL (0.5-1.5); POTASSIUM 4.1 mmol/L (3.5-5.1)
[2022-02-09 15:29] LABS: INR 1.09 (0.85-1.15); PROTHROMBIN TIME 11.8 SEC (9.6-11.6)
[2022-02-09 15:30] LABS: PARTIAL THROMBOPLASTIN TIME 32.3 SEC (26.3-35.5)
[2022-02-09 15:45] LABS: B-TYPE NATRIURETIC PEPTIDE 208 pg/mL (0-100)
[2022-02-10 10:48] VITALS: BP 172/82
[~2022-02-11] VITALS: Ht 165.1 cm; Wt 70.8 kg
[2022-02-11] VITALS (11 sets, daily range): BP systolic 126–166; BP diastolic 61–79
[~2022-02-11 08:14] MED LIST changes: +0.9% NACL 500ML IV.SOLN 500 ML IV SCH; -APIX5TAB PO; -CALC-866 PO; -LINA145C PO; -LOSA25TA2 PO; +LOSA25TA41 PO; -MAGN400T51 PO; +PRED10TA3 PO; +RIVA20TA PO; -[UNRECOGNIZED DRUG - OTHER] PO
[2022-02-11] MEDS ORDERED: 0.9%NACL 1000ML 1,000 ML IV ONE (09:06)
[2022-02-11] MEDS ORDERED: SOLU-MEDROL 125MG VIAL ONE (10:42)
[2022-02-11] MEDS ORDERED: LIDOCAINE HCL 400MG/20ML VIAL ONE (12:27)
[2022-02-11] MEDS ORDERED: NITROGLYCERIN 50MG VIAL ONE (12:27)
[2022-02-11] MEDS ORDERED: IOHEXOL 350 MG/ML 100ML INFUS..BTL IV ONE ×2 (12:27→13:46)
[2022-02-11] MEDS ORDERED: FENTANYL CITRATE PF 50 MCG/1 ML 2ML VIAL ONE (12:27)
[2022-02-11] MEDS ORDERED: MIDAZOLAM HCL 1 MG/ML 2ML VIAL ONE (12:27)
[2022-02-11] MEDS ORDERED: HEPARIN 10,000 UNIT/10ML (1,000 UNIT/ML) VIAL ONE (12:27)
[2022-02-11] MEDS ORDERED: BIVALIRUDIN 250 MG/VIAL IV ONE (13:38)
[2022-02-11] MEDS ORDERED: CLOPIDOGREL 300MG TAB ONE (13:59)
[2022-02-11] MEDS ORDERED: ASPIRIN 325MG EC TAB PO ONE (14:00)
[2022-02-11] MEDS ORDERED: IOHEXOL-350 50ML VIAL IV ONE (14:01)
[2022-02-11] MEDS ORDERED: LABETALOL 20MG SYG IV ONE (14:17)
[2022-02-11] MEDS ORDERED: DEXTROSE 50%-WATER 50 ML DISP.SYRIN IV PRN (14:30)
[2022-02-11] MEDS ORDERED: METOPROLOL TARTRATE 1 MG/ML 5ML VIAL IV PRN (14:30)
[2022-02-11] MEDS ORDERED: NITROGLYCERIN 0.4 MG SL TAB SL PRN (14:30)
[2022-02-11] MEDS ORDERED: GLUCAGON 1MG KIT 1 MG ML IM PRN (14:30)
[2022-02-11] MEDS: RIVAROXABAN 20 MG TABLET PO SCH (21:12)
[2022-02-11] MEDS: POTASSIUM CHLORIDE 10MEQ SR TAB PO SCH (21:13)
[2022-02-11] MEDS: CARVEDILOL 6.25 MG TABLET PO SCH (21:13)
[2022-02-11] MEDS: FUROSEMIDE 20MG VIAL IV SCH (21:15)
[2022-02-12] VITALS (7 sets, daily range): BP systolic 109–136; BP diastolic 45–71
[2022-02-12 04:11] LABS: HEMATOCRIT 42.8 % (42-54); MEAN CORPUSCULAR HEMOGLOBIN 28.6 pg (27.0-33.0); MEAN CORPUSCULAR HGB CONC 33.6 g/dL (32.0-36.0); MEAN CORPUSCULAR VOLUME 85.1 fL (79-99); RED BLOOD CELL COUNT(AUTO) 5.03 MIL/uL (4.50-6.20); RED CELL DISTRIBUTION WIDTH 13.8 % (11.0-15.5)
[2022-02-12] MEDS: FUROSEMIDE 20MG VIAL IV SCH ×2 (04:38→17:44)
[2022-02-12 04:52] LABS: CREATININE 0.9 mg/dL (0.5-1.5); POTASSIUM 3.7 mmol/L (3.5-5.1)
[2022-02-12] MEDS ORDERED: LOSARTAN 50 MG TABLET PO SCH (09:00)
[2022-02-12] MEDS: LOSARTAN 50 MG TABLET PO SCH (09:13)
[2022-02-12] MEDS: CARVEDILOL 6.25 MG TABLET PO SCH ×2 (09:14→20:36)
[2022-02-12] MEDS: RIVAROXABAN 20 MG TABLET PO SCH (09:14)
[2022-02-12] MEDS: POTASSIUM CHLORIDE 10MEQ SR TAB PO SCH ×2 (09:15→20:36)
[2022-02-12] MEDS: ASPIRIN 81 MG EC TAB PO SCH (09:15)
[2022-02-12] MEDS: CLOPIDOGREL 75MG TAB PO SCH (09:15)
[2022-02-12] MEDS ORDERED: LINA145C PO (15:43)
[2022-02-12] MEDS ORDERED: PREDNISONE 10 MG TABLET PO SCH (20:00)
[2022-02-12] MEDS ORDERED: ATORVASTATIN 40 MG TABLET ONE (20:05)
[2022-02-12] MEDS ORDERED: PREDNISONE 5 MG TABLET ONE (20:05)
[2022-02-12] MEDS ORDERED: ATORVASTATIN 40 MG TABLET PO SCH (21:00)
[2022-02-13 03:23] VITALS: BP 131/70
[2022-02-13 04:49] LABS: HEMATOCRIT 46.8 % (42-54); MEAN CORPUSCULAR HEMOGLOBIN 28.6 pg (27.0-33.0); MEAN CORPUSCULAR HGB CONC 32.9 g/dL (32.0-36.0); RED BLOOD CELL COUNT(AUTO) 5.38 MIL/uL (4.50-6.20); RED CELL DISTRIBUTION WIDTH 14.3 % (11.0-15.5); WHITE BLOOD COUNT (AUTO) 7.2 K/uL (4.8-10.8)
[2022-02-13 05:06] LABS: CREATININE 1.1 mg/dL (0.5-1.5); POTASSIUM 4.3 mmol/L (3.5-5.1)
[2022-02-13] MEDS: FUROSEMIDE 20MG VIAL IV SCH (05:15)
[2022-02-13 08:00] VITALS: BP 146/88
[2022-02-13] MEDS ORDERED: PANTOPRAZOLE 40 MG TAB DR PO SCH (09:00)
[2022-02-13] MEDS ORDERED: LINACLOTIDE 145 MCG PO SCH (09:00)
[2022-02-13] MEDS: RIVAROXABAN 20 MG TABLET PO SCH (10:33)
[2022-02-13] MEDS: ASPIRIN 81 MG EC TAB PO SCH (10:33)
[2022-02-13] MEDS: LOSARTAN 50 MG TABLET PO SCH (10:33)
[2022-02-13] MEDS: CLOPIDOGREL 75MG TAB PO SCH (10:33)
[2022-02-13] MEDS: CARVEDILOL 6.25 MG TABLET PO SCH (10:34)
[2022-02-13] MEDS: POTASSIUM CHLORIDE 10MEQ SR TAB PO SCH (10:35)
[2022-02-13 11:43] VITALS: BP 108/58
[2022-02-13 16:00] VITALS: BP 109/58
[2022-02-13] MEDS ORDERED: AEC81 PO (17:09)
[2022-02-13] MEDS ORDERED: FURO20TA4 PO (17:09)
[2022-02-13] MEDS ORDERED: CLOP75TA14 PO (17:09)
[2022-02-13] MEDS ORDERED: POTA-10 PO (17:09)
== END 2022-02-13 20:11 | disposition home or self-care (01) | DRG 246 ==
LOC: DAH 08:14 → DAHIP 08:15 → 2DH 19:15
PROVIDERS: ADMIT Internal Medicine Pulmonary Disease; ATTEND Internal Medicine Pulmonary Disease
PROC: 4A023N8 Measurement of Cardiac Sampling and Pressure, Bilateral, Percutaneous Approach (ICD-10-PCS; principal; 2022-02-11)
PROC: 027034Z Dilation of Coronary Artery, One Artery with Drug-eluting Intraluminal Device, Percutaneous Approach (ICD-10-PCS; 2022-02-11)
PROC: B2111ZZ Fluoroscopy of Multiple Coronary Arteries using Low Osmolar Contrast (ICD-10-PCS; 2022-02-11)
PROC: B2151ZZ Fluoroscopy of Left Heart using Low Osmolar Contrast (ICD-10-PCS; 2022-02-11)
PROC: B2121ZZ Fluoroscopy of Single Coronary Artery Bypass Graft using Low Osmolar Contrast (ICD-10-PCS; 2022-02-11)
PROC: B2181ZZ Fluoroscopy of Left Internal Mammary Bypass Graft using Low Osmolar Contrast (ICD-10-PCS; 2022-02-11)
DX: I25.119 Atherosclerotic heart disease of native coronary artery with unspecified angina pectoris (principal); I50.43 Acute on chronic combined systolic (congestive) and diastolic (congestive) heart failure; E78.5 Hyperlipidemia, unspecified; I11.0 Hypertensive heart disease with heart failure; I27.20 Pulmonary hypertension, unspecified; N40.0 Benign prostatic hyperplasia without lower urinary tract symptoms; Z95.810 Presence of automatic (implantable) cardiac defibrillator; Z95.1 Presence of aortocoronary bypass graft; Z95.5 Presence of coronary angioplasty implant and graft; K21.9 Gastro-esophageal reflux disease without esophagitis; K59.00 Constipation, unspecified; I25.5 Ischemic cardiomyopathy; I48.0 Paroxysmal atrial fibrillation; Z91.041 Radiographic dye allergy status; Z79.01 Long term (current) use of anticoagulants; I34.0 Nonrheumatic mitral (valve) insufficiency
CPT/HCPCS: 36415; 71045; 80048; 81003; 83880; 85025; 85027; 85610; 85730; 93005; 93306; 93356; 93461; 94760; 99156; 99157; A4606; C1760; C1769; C1887; C1894; C9600; G0378; J0583; J1644; J1940; J2250; J2930; J3010; J3490; J7030; J7512; Q9967

== ENCOUNTER 2022-02-18 18:43 | Emergency (ER) | payer OTHER, MEDICARE ==
[~2022-02-18 18:43] MED LIST changes: -0.9% NACL 500ML IV.SOLN 500 ML IV SCH; +AEC81 PO; +CLOP75TA14 PO; +FURO20TA4 PO; +LINA145C PO; +POTA-200 PO
[2022-02-18 18:59] LABS: BASOPHILS % (AUTO) 0.3 % (0.0-5.0); EOSINOPHILS % (AUTO) 4.8 % (0.0-8.0); HEMATOCRIT 43.8 % (42-54); LYMPHOCYTES % (AUTO) 22.9 % (21.0-51.0); MEAN CORPUSCULAR HEMOGLOBIN 28.9 pg (27.0-33.0); MEAN CORPUSCULAR HGB CONC 33.6 g/dL (32.0-36.0); MEAN CORPUSCULAR VOLUME 86.1 fL (79-99); MONOCYTES % (AUTO) 12.4 % (3.0-13.0); NEUTROPHILS % (AUTO) 59.2 % (40.0-77.0); PLATELET COUNT (AUTO) 141 K/uL (130-400); RED BLOOD CELL COUNT(AUTO) 5.09 MIL/uL (4.50-6.20); RED CELL DISTRIBUTION WIDTH 13.4 % (11.0-15.5); WHITE BLOOD COUNT (AUTO) 7.5 K/uL (4.8-10.8)
[2022-02-18 19:08] LABS: CREATININE 1.2 mg/dL (0.5-1.5); POTASSIUM 3.7 mmol/L (3.5-5.1)
[2022-02-18 19:09] LABS: INR 1.57 (0.85-1.15); PROTHROMBIN TIME 16.7 SEC (9.6-11.6)
[2022-02-18 19:11] LABS: PARTIAL THROMBOPLASTIN TIME 43.9 SEC (26.3-35.5)
[2022-02-18 19:13] LABS: ALBUMIN 3.8 g/dL (3.5-5.0); TOTAL PROTEIN, SERUM 6.7 g/dL (6.0-8.3)
[2022-02-18 19:16] LABS: B-TYPE NATRIURETIC PEPTIDE 126 pg/mL (0-100)
[2022-02-18 22:33] VITALS: BP 119/82
== END 2022-02-18 22:35 | disposition home or self-care (01) ==
LOC: EDH 18:43
DX: R06.02 Shortness of breath (principal); R06.00 Dyspnea, unspecified; E11.9 Type 2 diabetes mellitus without complications; E78.00 Pure hypercholesterolemia, unspecified; I10 Essential (primary) hypertension; I25.10 Atherosclerotic heart disease of native coronary artery without angina pectoris; Z88.1 Allergy status to other antibiotic agents; Z88.2 Allergy status to sulfonamides; Z79.52 Long term (current) use of systemic steroids; Z79.82 Long term (current) use of aspirin; Z79.899 Other long term (current) drug therapy
CPT/HCPCS: 36415; 71045; 80053; 83880; 84484; 85025; 85610; 85730; 93005

== ENCOUNTER → 2023-08-08 | Outpatient (CLI) | payer OTHER, MEDICARE ==
[~2023-08-08] MED LIST changes: -ASPI-556 PO; +ATOR40TA69 PO; -ATOR40TA71 PO; +CLOP-31 PO; -CLOP75TA14 PO; -PRED10TA3 PO; +TAMS-1 PO
[2023-08-08 15:05] LABS: BASOPHILS # (AUTO) 0.02 K/uL (0.00-0.20); BASOPHILS % (AUTO) 0.4 % (0.0-5.0); EOSINOPHILS # (AUTO) 0.32 K/uL (0.00-0.70); EOSINOPHILS % (AUTO) 6.2 % (0.0-8.0); HEMATOCRIT 45.1 % (42-54); IMMATURE GRANULOCYTE ABSOLUTE 0.01 K/uL (0-1); LYMPHOCYTES # (AUTO) 1.4 K/uL (1.0-4.8); LYMPHOCYTES % (AUTO) 26.4 % (21.0-51.0); MEAN CORPUSCULAR HEMOGLOBIN 29.9 pg (27.0-33.0); MEAN CORPUSCULAR VOLUME 90.6 fL (79-99); MONOCYTES # (AUTO) 0.7 K/uL (0.1-1.0); MONOCYTES % (AUTO) 12.8 % (3.0-13.0); NEUTROPHILS # (AUTO) 2.8 K/uL (1.8-7.7); PLATELET COUNT (AUTO) 138 K/uL (130-400); RED BLOOD CELL COUNT(AUTO) 4.98 MIL/uL (4.50-6.20); RED CELL DISTRIBUTION WIDTH 13.3 % (11.0-15.5); WHITE BLOOD COUNT (AUTO) 5.2 K/uL (4.8-10.8)
[2023-08-08 15:17] LABS: CREATININE 1.1 mg/dL (0.5-1.5); POTASSIUM 4.6 mmol/L (3.5-5.1)
== END | disposition home or self-care (01) ==
LOC: LAB 14:35
PROVIDERS: ATTEND Urology
DX: N40.1 Benign prostatic hyperplasia with lower urinary tract symptoms (principal); N20.2 Calculus of kidney with calculus of ureter
CPT/HCPCS: 36415; 80048; 85025

== ENCOUNTER → 2023-08-09 | Outpatient (CLI) | payer OTHER, MEDICARE | END | disposition home or self-care (01) | LOC: RAH 12:18 | PROVIDERS: ATTEND Urology | DX: K42.9 Umbilical hernia without obstruction or gangrene (principal); N20.1 Calculus of ureter | CPT/HCPCS: 74176 ==

== ENCOUNTER → 2023-08-12 | Outpatient (CLI) | payer OTHER, MEDICARE ==
[~2023-08-12] MED LIST changes: +IOHEXOL-350 50ML VIAL IV ONE
== END | disposition home or self-care (01) ==
LOC: RAH 08:55
PROVIDERS: ATTEND Urology
DX: N20.2 Calculus of kidney with calculus of ureter (principal); N20.1 Calculus of ureter; N40.1 Benign prostatic hyperplasia with lower urinary tract symptoms
CPT/HCPCS: 74400; Q9967

== ENCOUNTER → 2023-09-09 | Outpatient (CLI) | payer OTHER, MEDICARE ==
[~2023-09-09] MED LIST changes: -IOHEXOL-350 50ML VIAL IV ONE
== END | disposition home or self-care (01) ==
LOC: SHCH 08:50
PROVIDERS: ATTEND Internal Medicine Cardiovascular Disease
DX: I11.9 Hypertensive heart disease without heart failure (principal); R06.09 Other forms of dyspnea; E78.5 Hyperlipidemia, unspecified; Z95.1 Presence of aortocoronary bypass graft; Z95.810 Presence of automatic (implantable) cardiac defibrillator
CPT/HCPCS: 93306

== ENCOUNTER → 2023-09-13 | Outpatient (CLI) | payer OTHER, MEDICARE ==
[2023-09-13] MEDS: REGADENOSON 0.4 MG/5 ML PF SYG IVP ONE (16:20)
== END | disposition home or self-care (01) ==
LOC: SHCH 08:49
PROVIDERS: ATTEND Internal Medicine Cardiovascular Disease
DX: I25.42 Coronary artery dissection (principal); I25.110 Atherosclerotic heart disease of native coronary artery with unstable angina pectoris; R07.9 Chest pain, unspecified; Z95.0 Presence of cardiac pacemaker
CPT/HCPCS: 78452; 96374; 93017; J2785; A9500 ×2

== ENCOUNTER 2023-10-11 05:37 | Day surgery (SDC) | payer OTHER, MEDICARE ==
[2023-10-11] VITALS (11 sets, daily range): BP systolic 91–157; BP diastolic 52–89; PULSE 60–70; RESP 10–20
[~2023-10-11] VITALS: Ht 160 cm; Wt 78.9 kg
[~2023-10-11 05:37] MED LIST changes: -AEC81 PO; +CHOL500050 PO; -CLOP-31 PO; -LINA145C PO; -OMEP20CA12 PO; -POTA-200 PO; -RIVA20TA PO; -TAMS0.4C32 PO; +VIT1CAPS5 PO
[2023-10-11] MEDS: 0.9%NACL 1000ML 1,000 ML IV ONE (06:02)
[2023-10-11] MEDS ORDERED: PROPOFOL 10 MG/ML 20ML VIAL IV ONE ×2 (08:07)
== END 2023-10-11 10:00 | disposition home or self-care (01) ==
LOC: ENDO 05:37 → DAH 05:37 → ENDO 10:00
PROVIDERS: ATTEND Internal Medicine Gastroenterology
DX: K92.1 Melena (principal); K63.5 Polyp of colon; Z86.010 Personal history of colon polyps; K64.9 Unspecified hemorrhoids; I10 Essential (primary) hypertension; I25.10 Atherosclerotic heart disease of native coronary artery without angina pectoris; Z95.1 Presence of aortocoronary bypass graft; Z95.0 Presence of cardiac pacemaker
CPT/HCPCS: 45380; 45385; J7030; J2704 ×2; A4620; A4215 ×2; A4223; A7002; A4222; A4221; A4663; A4606; J3490

== ENCOUNTER → 2023-10-20 | Outpatient (CLI) | payer OTHER, MEDICARE ==
[2023-10-20 10:27] LABS: BASOPHILS # (AUTO) 0.01 K/uL (0.00-0.20); BASOPHILS % (AUTO) 0.2 % (0.0-5.0); EOSINOPHILS # (AUTO) 0.29 K/uL (0.00-0.70); HEMATOCRIT 48.6 % (42-54); IMMATURE GRANULOCYTE ABSOLUTE 0.02 K/uL (0-1); LYMPHOCYTES # (AUTO) 1.2 K/uL (1.0-4.8); MEAN CORPUSCULAR HEMOGLOBIN 29.1 pg (27.0-33.0); MEAN CORPUSCULAR HGB CONC 32.5 g/dL (32.0-36.0); MEAN CORPUSCULAR VOLUME 89.5 fL (79-99); MONOCYTES # (AUTO) 0.5 K/uL (0.1-1.0); MONOCYTES % (AUTO) 10.3 % (3.0-13.0); NEUTROPHILS # (AUTO) 2.8 K/uL (1.8-7.7); NEUTROPHILS % (AUTO) 58.1 % (40.0-77.0); PLATELET COUNT (AUTO) 137 K/uL (130-400); RED BLOOD CELL COUNT(AUTO) 5.43 MIL/uL (4.50-6.20); RED CELL DISTRIBUTION WIDTH 13.9 % (11.0-15.5); WHITE BLOOD COUNT (AUTO) 4.8 K/uL (4.8-10.8)
[2023-10-20 10:32] LABS: POTASSIUM 3.9 mmol/L (3.5-5.1)
== END | disposition home or self-care (01) ==
LOC: LAB 09:53
PROVIDERS: ATTEND Urology
DX: N20.0 Calculus of kidney (principal)
CPT/HCPCS: 36415; 80048; 85025

== ENCOUNTER → 2023-10-25 | Outpatient (CLI) | payer OTHER, MEDICARE ==
[~2023-10-25] MED LIST changes: +IOHEXOL 350 MG/ML 100ML INFUS..BTL IV ONE
== END | disposition home or self-care (01) ==
LOC: RAH 08:15
PROVIDERS: ATTEND Urology
DX: N20.0 Calculus of kidney (principal)
CPT/HCPCS: 74400; Q9967